=== PATIENT | male | born 1965 | race Caucasian/White ===

== ENCOUNTER 2019-11-02 04:29 | Emergency (ER) | payer SELFPAY ==
[~2019-11-02] VITALS: Ht 180.3 cm; Wt 125.0 kg
[2019-11-02 04:30] VITALS: TEMP 98.1
[2019-11-02 04:52] LABS: BASO # 0.1 (0.0-0.2); BASO % 0.9 % (0.0-2.0); EOS # 0.2 (0.0-0.7); EOS % 2.5 % (0-4.0); GRAN # 4.9 (1.4-6.5); GRAN % 52.4 % (42.2-75.2); HEMATOCRIT 42.8 % (42.0-52.0); HEMOGLOBIN 14.5 g/dl (13.5-18.0); LYMPH # 3.3 (1.2-3.4); LYMPH % 35.4 % (20.0-51.0); MEAN CELL VOLUME 90 fl (80.0-100.0); MEAN CORPUSCULAR HEMOGLOBIN 30 pg (27.0-31.0); MEAN CORPUSCULAR HGB CONC 34 g/dl (33.0-37.0); MONO # 0.8 (0.1-0.6); MONO % 8.5 % (1.7-9.3); PLATELET COUNT 219 K/mm3 (130-400); RED BLOOD COUNT 4.77 M/mm3 (4.20-5.60); REDCELL DISTRIBUTION WIDTH-CV 12.7 % (11.5-14.5)
[2019-11-02 04:59] LABS: ALANINE AMINOTRANSFERASE 30 U/L (4-49); ALBUMIN 3.5 gm/dL (3.5-5.0); ALKALINE PHOSPHATASE 99 U/L (50-136); ANION GAP 8 mmol/L (7-16); AST,SGOT 26 U/L (15-37); BILIRUBIN,TOTAL 0.5 mg/dL (0.0-1.0); BLOOD UREA NITROGEN 15 mg/dL (9-20); CALCIUM 8.7 mg/dL (8.4-10.2); CARBON DIOXIDE 26 mmol/L (22-30); CHLORIDE 103 mmol/L (98-107); CREATININE, serum 0.79 (0.66-1.25); GLUCOSE 220 mg/dL (74-106); LIPASE 66 U/L (23-300); POTASSIUM 3.9 mmol/L (3.4-5.0); SODIUM 137 mmol/L (137-145); TOTAL PROTEIN 6.4 gm/dL (6.4-8.2)
[2019-11-02 05:06] LABS: PROTHROMBIN TIME 10.7 SECONDS (9.7-12.8)
[2019-11-02 05:09] LABS: PARTIAL THROMBOPLASTIN TIME 26.6 SECONDS (26.0-37.0)
[2019-11-02 05:13] LABS: TROPONIN-I < 0.012 ng/mL (0.000-0.035)
[2019-11-02 07:08] LABS: COLLECTION METHOD CLEAN CATCH
[2019-11-02 07:23] LABS: MUCOUS Present /lpf; PH 5 (5-8); SQUAMOUS EPITHELIAL 0-2 /hpf; URINE APPEARANCE Clear; URINE BACTERIA None Seen /hpf; URINE BILIRUBIN Negative (NEGATIVE); URINE BLOOD Negative (NEGATIVE); URINE COLOR Yellow; URINE GLUCOSE 3+ (NEGATIVE); URINE KETONE Negative (NEGATIVE); URINE LEUKOCYTE ESTERASE Negative (NEGATIVE); URINE NITRATE Negative (NEGATIVE); URINE PROTEIN(semi-quant) Negative (NEGATIVE)
[2019-11-02 07:24] LABS: TRICYCLIC ANTIDEPRESS URINE NEGATIVE
[2019-11-02 09:57] VITALS: BP 121/81; PULSE 65
--- NOTE | 2019-11-02 11:38 | NUR ---
[employer] responded to consult in the ED for patient who is here from [place] and has no way to get home. 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 Patient states the crew has gone home and won't be back here until later tonight. Patient states he lives in [place], [place] with his girlfriend, Lucie Jones (ph#[phone]). SW contacted Lucie who advised she cannot drive, but their neighbor Shannon may be able to come get patient. SW followed up with patient who states Shannon does not want to drive this far and doesn't think there is anyone else who can come get him. Patient states he has been on the phone with his employer, but doesn't think they will come get him either. SW contacted Michael at [employer] (ph#[phone]) who states he is still working on getting patient a ride but has nothing arranged at this time. SW followed up with patient who states he is stranded and would like to stay in the ER until tonight. SW advised he is ready to be discharged and cannot stay here until this evening. Patient asks to have his IV removed and is agreeable to take a taxi to [facility], even though he is not happy about it. Patient states he cannot stay at [facility] all day, per his employer's contract. SW advised there are restaurants and outdoor seating in the [facility], where the [facility] is located. Patient again is not happy to wait at [facility] but is agreeable to a taxi voucher. LISA completed voucher and contacted Sumanth Parra who will pick up man patient. LISA collaborated the above information to ED Physician and RN, Vi. LISA also contacted Michael at [facility] to advise where patient is being discharged to. No additional needs at this time.
== END 2019-11-02 10:01 | disposition home or self-care (01) ==
LOC: COL.ER 04:29
PROVIDERS: Emergency Medicine
DX: R51 Headache (principal); R07.89 Other chest pain; R06.02 Shortness of breath; I10 Essential (primary) hypertension; E11.9 Type 2 diabetes mellitus without complications; Z79.4 Long term (current) use of insulin; Z90.49 Acquired absence of other specified parts of digestive tract; Z95.0 Presence of cardiac pacemaker
CPT/HCPCS: J2060; J7030; Q9967